=== PATIENT | female | born 1980 | race Two or more races ===

== ENCOUNTER → 2018-05-21 14:11 | Outpatient (CLI) | payer OTHER, SELFPAY ==
[2018-05-27 16:46] LABS: HPV Reflexed? NOT INDICATED
--- OUTSIDE RECORDS SUMMARY | 2018-07-26 09:24 | XMS RPT_ITS ---
:1980 Author Organization [facility] Care Team Providers Name Role Phone ERIN JC II Attending Unavailable Dylon Gunn Attending Unavailable PROBLEMS PROBLEMS DATE TYPE CONDITION / CODE ATTENDING STATUS SOURCE 05/21/2018 Unknown Z12.4 - Dylon Gunn Active [place] Encounter for Community screening for Hospital malignant Repository neoplasm of cervix / Z12.4(ICD-10) PROCEDURES PROCEDURES No Procedure Records FoundRESULTS RESULTS PAP I-G W/RFX HRHPV Collected: 05/21/2018 Status: F Source: [place] 9:05 AM [facility] REPOSITORY Order Comment: CYTOLOGY INFORMATION: - CLINICAL INFORMATION: - DATE LMP/MENOPAUSE: MIRENA/LAUREN - COLLECTION VIAL: Thin Prep Vial - NET MOBILE DEVELOPER SOURCE: CERVICAL/ENDOCERVICAL - COLLECTION TECHNIQUE: BRUSH/SPATULA Specimen Comment: [id number] Specimen Comment: Source.............Cervix;Endocervix Specimen Comment: Dates / Results....MIRENA/LAUREN Specimen Comment: No. of containers..01 ThinPrep Vial TYPE CODE TESTS RESULT OUT OF RANGE REFERENCE UNITS LAB L7400.0800 . Normal DIAGN Comment Result Comment: NEGATIVE FOR INTRAEPITHELIAL LESION OR MALIGNANCY. LAB L7400.0900 . Normal ADEQ Comment Result Comment: Satisfactory for evaluation. Endocervical and/or squamous metaplastic cells (endocervical component) are present. LAB L7400.1400 . Normal PERFORM Comment Result Comment: Ginny Lu, Test Center Administrator LAB L7400.2195 . Normal TEST METHOD Comment Result Comment: This liquid based ThinPrep(R) pap test was screened with the use of an image guided system. LAB L7400.2600 . Normal . COMM LAB L7400.2700 . Normal PAPSMR Comment Result Comment: The Pap smear is a screening test designed to aid in the detection of premalignant and malignant conditions of the uterine cervix. It is not a diagnostic procedure and should not be used as the sole means of detecting cervical cancer. Both false-positive and false-negative reports do occur. LAB L7400.2800 . Normal HPV RFLX Comment Result Comment: The HPV DNA reflex criteria were not met with this specimen result therefore, no HPV testing was performed. Performed at: - [facility] [id number] [employer] Operator: La Nena Castro MD, Phone: [phone] Performed By: #### L7400.0350 #### [facility] (refer to report for specific site) refer to report for address and phone number PROGRESS Observed: 04/21/2018 Status: COMPLETED Source: [place] 3:16 PM [facility] REPOSITORY HNO ID: [id number] Author: Erin Jc II Service: (none) Author Type: SENIOR WATER/WASTEWATER ENGINEER Type: Progress Notes Filed: 04/21/2018 3:17 PM Note Text: Assessment and Plan H52.13 Myopia of both eyes (primary encounter diagnosis) Comment: Ocular health maintained with contact lens use. To try reduced moore. Gave samples. Update glasses as desired. Recheck in one year. H43.393 Vitreous floaters of both eyes Comment: Vitreal floaters stable both eyes. Retinas flat and intact with no apparent retinal tear or traction. Monitor yearly. I have confirmed and edited as necessary the relevant ophthalmic history, ROS, and the neuro exam findings as obtained by others. I have seen and examined Swapna Rossi. I have discussed the case and the management of this patient's care with the Resident/Fellow, if applicable. I also have reviewed and agree with the assessment and plan as stated above and agree with all of its relevant components. Erin Jc, II, OD ALLERGIES ALLERGIES DATE TYPE / CODE NAME / CODE REACTION SEVERITY SOURCE 03/07/2015 Environ/420 SEASONAL OTHER: SEE C [facility] [id number](SN ALLERGIES [facility] ED CT) Repository ENCOUNTERS ENCOUNTERS ADMIT/DISCHARGE ACCOUNT ADMITTING ENCOUNTER LOCATION SOURCE NUMBER CLASS 05/21/2018 [id number] Ambulatory [facility] ing:[facility] Repository 04/21/2018/04/22/20 [id number] Ambulatory [address] Repository PAYERS PAYERS ENCOUNTER GUARANTOR PAYER SUBSCRIBER SOURCE 05/21/2018 DANARA Primary SWAPNA Us [id number] Insurance:[employer]ULTCAREPol ROSMERYACEDOB: [facility] CALLANA [facility] [place]: [id number] [id number] Repository 31833Qwc: . (HP) e Date:[id number], [place] [address]JB: 05/21/2018 Secondary NOT GIVENUNK [place] Insurance:SELF PAY [facility] Number: Effective Repository Date:2018-05-21
== END ==
PROVIDERS: Visit Provider Obstetrics & Gynecology
DX: Z12.4 Encounter for screening for malignant neoplasm of cervix (principal)
CPT/HCPCS: 88175; G0145